=== PATIENT | female | born 1975 | race Caucasian/White ===

== ENCOUNTER 2018-02-07 17:35 | Outpatient (REF) | payer MEDICAID, SELFPAY ==
--- NOTE | 2018-02-07 15:20 | PAPFT_PTH ---
PATIENT: Saige Merchant LOC: [facility] U#:[id number] AGE/SX: 42/F ROOM: RE02/07/[address]: Tamara De La Torre NP : 1975 BED: DIS: 02/07/2018 SPEC #: [id number] RECD: 02/07/18 18:01 STATUS: KAY REBharath #: [id number] CELESTINE: 02/07/18 15:[address]: Tamara De La Torre NP DEPT: [facility] Cytology RECD BY: Sabine Donovan ENTERED: 02/07/18 18:01 SP TYPE: PAPFT OTHR DR: Joseph Hunt MD Tissues: 1 - CX/ENDOCX FOR PAP SMEARS Procedures: PAP THIN PREP/UVM Screening HPV DNA PROBE Comments: [id number]
== END 2018-02-07 17:55 ==
LOC: LBN 17:35
PROVIDERS: PCP Family Medicine; Visit Provider Nurse Practitioner Women's Health
DX: Z12.4 Encounter for screening for malignant neoplasm of cervix (principal); Z11.51 Encounter for screening for human papillomavirus (HPV)
CPT/HCPCS: 88142; 87624

== ENCOUNTER 2018-02-28 00:25 | Outpatient (CLI) | payer MEDICAID, SELFPAY ==
--- NOTE | 2018-02-28 15:24 | DI.MAMMO_ITS ---
SYMPTOM/DIAGNOSIS: BASELINE, SCREENING MAMMOGRAMS: Mammograms were interpreted according to the usual protocol including computer analysis with CAD system, tomosynthesis and C view imaging. This is a baseline examination. Breast density C. No masses or microcalcifications are seen. There is nothing to suggest malignancy. IMPRESSION: Negative mammogram. Routine screening is recommended. Category I. MQSA ASSESSMENT OF FINDINGS: Negative. Category 1. Patient will receive a letter notifying them of these results. Bi-RADS category C. The breasts are heterogeneously dense, which may obscure small masses.
== END 2018-02-28 00:45 ==
PROVIDERS: PCP Family Medicine; Visit Provider Nurse Practitioner Women's Health
DX: Z12.31 Encounter for screening mammogram for malignant neoplasm of breast (principal)
CPT/HCPCS: 77063; 77067

== ENCOUNTER 2018-05-08 17:20 | Outpatient (REF) | payer MEDICAID, SELFPAY ==
[2018-05-12 13:36] LABS: Chlamydia Result Negative; GC Result Negative; Specimen Description CERVIX
== END 2018-05-08 17:40 ==
LOC: LBN 17:20
PROVIDERS: PCP Family Medicine; Visit Provider Nurse Practitioner Family
DX: Z11.3 Encounter for screening for infections with a predominantly sexual mode of transmission (principal)
CPT/HCPCS: 87491; 87591

== ENCOUNTER 2021-08-24 16:05 | Outpatient (REF) | payer OTHER, SELFPAY ==
--- NOTE | 2021-08-24 15:45 | PAPFT_PTH ---
PATIENT: Saige Merchant LOC: [facility] U#:[id number] AGE/SX: 45/F ROOM: RE08/24/[address]: BLAIRE Pham : 1975 BED: DIS: 08/24/2021 SPEC #: [id number] RECD: 08/24/21 17:41 STATUS: KAY REBharath #: [id number] CELESTINE: 08/24/21 15:[address]: Buffy De Paz DEPT: [facility] Cytology RECD BY: Sabine Donovan ENTERED: 08/24/21 17:42 SP TYPE: PAPFT OTHR DR: Alla Valencia, PhD [employer]HER Tissues: 1 - CX/ENDOCX FOR PAP SMEARS Procedures: PAP THIN PREP/UVM Screening HPV DNA PROBE Comments: [id number]
== END 2021-08-24 16:06 | disposition home or self-care (01) ==
LOC: LBN 16:05
PROVIDERS: PCP Nurse Practitioner; Visit Provider Nurse Practitioner Family
DX: Z12.4 Encounter for screening for malignant neoplasm of cervix (principal); Z11.51 Encounter for screening for human papillomavirus (HPV)
CPT/HCPCS: 88142; 87624

== ENCOUNTER 2021-09-14 01:59 | Outpatient (CLI) | payer OTHER, SELFPAY ==
--- NOTE | 2021-09-14 07:53 | DI.MAMMO_ITS ---
Exam(s) MAMMO SCREENING EXAM: MAMMO SCREENING CLINICAL HISTORY: screening,z12.39 TECHNIQUE: Bilateral full field digital CC and MLO mammographic images were obtained with 3D tomosyn thesis and utilizing computer aided detection (CAD). COMPARISON: Available for comparison. FINDINGS: Masses/Architectural Distortion: There is a spiculated area in the outer central right breast seen on both the craniocaudad and mediolateral oblique views. Microcalcifications: No suspicious pleomorphic-type are seen. Skin Thickening/Nipple Retraction: None. IMPRESSION: 1. Area of spiculation in the outer right breast. This area should be further evaluated with spot co mpression views in both the CC and MLO views. 2. Right breast ultrasound should also be obtained at that time. BI-RADS Category 0 - Assessment Incomplete: Need additional imaging evaluation Breast Density - Category C - Heterogeneously dense Breast density category C or D implies that the patient has dense breast tissue. Dense breast tissue is very common and is not abnormal but dense breast tissue can make it harder to find cancer on a ma mmogram. Also, dense breast tissue may increase their breast cancer risk. This information about the result of the mammogram report was provided to the patient to raise their awareness. Use this report when you speak with the patient about their risks for breast cancer, which includes their family hist ory. At that time, you may recommend for more screening tests (Ultrasound or MRI) as they might be us eful based on their risk. A negative radiographic report should not delay biopsy if a dominant or clinically suspicious mass is present. Up to ten percent of cancers are not identified on mammography. A negative report may reinforce clinical impression. Adenosis and dense breasts may obscure an underlying neoplasm. False positive reports average 6 to 10%. Patient will receive a letter notifying them of these results.
== END 2021-09-14 02:19 ==
PROVIDERS: PCP Nurse Practitioner; Visit Provider Nurse Practitioner
DX: Z12.31 Encounter for screening mammogram for malignant neoplasm of breast (principal); R92.8 Other abnormal and inconclusive findings on diagnostic imaging of breast
CPT/HCPCS: 77063; 77067

== ENCOUNTER → 2021-09-26 01:19 | Outpatient (CLI) | payer OTHER, SELFPAY ==
--- NOTE | 2021-09-26 10:00 | DI.MAMMO_ITS ---
Exam(s) MG MAMMO SCREEN CALL BACK UNI US BREAST RT COMPLETE EXAM: MG MAMMO SCREEN CALL BACK UNI-RIGHT AND COMPLETE RIGHT BREAST ULTRASOUND CLINICAL HISTORY: F/U ABNL MAMMO, AREA OF SPICULATION IN OUTER RT BREAST. TECHNIQUE: Unilateral spot mammographic images obtained with 3D tomosynthesisand utilizing computer aided detection (CAD). . Complete RIGHT breast Ultrasound was also performed, including all 4 quadrants, the retroareolar vianney on, and the ipsilateral axilla. COMPARISON: Prior mammograms were reviewed. This additional imaging was performed due to findings described on the recent screening mammogram of 09/14/2021. FINDINGS: DIAGNOSTIC RIGHT BREAST MAMMOGRAM: Additional mammographic views performed todayreveal concerning findings at the area previously descri bed consisting of significant architectural distortion suspicious for malignancy. COMPLETE RIGHT BREAST ULTRASOUND: Ultrasound performed today reveals a few scattered microcysts.. However, the main finding is at 8 o' clock position where there is an ominous 1.4 x 1.2 cm hypoechoic area with decreased through transmis evonne which is suspicious for malignancy and corresponds to the finding on the mammogram. Ultrasound of the right axilla did not reveal significant adenopathy. IMPRESSION: Mammographic and ultrasound findings are highly suspicious for malignancy at the 8 o'clock position o f the right breast. Biopsy is recommended. Findings and recommendation for biopsy was discussed by myself with the patient today.. Findings and recommendations also called by myself to Dr. Valencia. BI-RADS Category 5 - Highly Suggestive of Malignancy: Biopsy recommended Breast Density - Category C - Heterogeneously dense Breast density Category C or D implies that the patient has dense breast tissue. Dense breast tissue can make it harder to find cancer on a mammogram. Dense breast tissue is also associated with an incr eased risk of breast cancer. This information about the result of the mammogram report was provided to the patient to raise their awareness. Use this report when you speak with the patient about their risks for breast cancer, which includes their family history. At that time, you may recommend additional screening tests (Ultrasoun d or MRI) as these tests may add significant information. A negative radiographic report should not delay biopsy if a dominant or clinically suspicious mass is present. Up to ten percent of cancers are not identified on mammography. A negative report may reinforce clinical impression. Adenosis and dense breasts may obscure an underlying neoplasm. False positive reports average 6 to 10%. Patient will receive a letter notifying them of these results.
== END ==
PROVIDERS: PCP Nurse Practitioner; Visit Provider Nurse Practitioner
DX: Z12.31 Encounter for screening mammogram for malignant neoplasm of breast (principal); R92.8 Other abnormal and inconclusive findings on diagnostic imaging of breast; N63.13 Unspecified lump in the right breast, lower outer quadrant
CPT/HCPCS: 76642; 77063; 77067

== ENCOUNTER 2022-09-21 11:11 | Day surgery (SDC) | payer OTHER, SELFPAY ==
--- NOTE | 2022-09-20 22:19 | PDOC.DSDIS_ITS ---
Date of service: 09/21/22 Time of Service: 13:57 Discharge Plan Disposition Patient Disposition: Home Condition: Good Discharge Details Reason For Visit: colon cancer screening Attending Provider: Claudia Bansal Primary Care Provider: Colette Copeland Home Meds and New Rx's Prescriptions: No Action Mirena 20 mcg/24 hr (5 years) intrauterine device 1 insert IY ONCE tamoxifen 20 mg tablet 20 mg PO HS Patient Comments: TAKE 1 TABLET BY MOUTH DAILY. START ON 02/26/22 citalopram [Celexa] 40 mg tablet 40 mg PO HS atenolol 25 mg tablet 25 mg PO HS Discharge Instructions Additional Instructions: DSU Colonoscopy Post- Op Instructions Instructions for Everyone who is given Anesthesia: For your safety, please do the following for the next twenty-four (24) hours: *Do Not operate a motor vehicle (car, truck, motorcycle, etc.) *Do Not drink alcoholic beverages or use any recreational drugs for the first 24 hours or while taking pain medications. The medications in your body may have a reaction that can be dangerous. *Do Not make any important decisions or sign any important papers. Findings: normal colon Follow up: Repeat in 10 yrs time. Of course, you should continue to have a yearly physical exam including a rectal exam. If you should ever notice any pain or difficulty having a bowel movement, blood in the stool, unexplained weight loss, or change in your bowel habits, please contact your health provider 1. No lifting over 20 pounds or strenuous activity for the first 24 hours after your procedure. After 24 hours there are no restrictions on your activity but you may feel fatigued for a few days. 2. After you arrive home you may have a light meal and return to your normal diet as you can tolerate it without feeling sick to your stomach. 3. You may have a bloated, gaseous feeling in your belly (abdomen) after a colonoscopy. Passing gas and belching will help. Walking or lying down on your left side with your knees flexed may relieve the discomfort. Call the office at [phone] (Office) or [phone] (Hospital) right away if you notice any of the following: a.Vomiting of blood or ?coffee ground stools?. b.Rectal bleeding 1Tbsp, blood clots or continuous bleeding. c.Severe belly (abdominal) pain. d.A hard distended belly (abdomen) and an inability to pass gas. 4. Please don?t expect to have a normal BM (bowel movement) for 2-3 days after your procedure. 5. If there are questions regarding the findings of your procedure, please contact your doctor 6. If you are unable to contact your doctor with a problem, contact the hospital at [phone]. 7. Continue all your regular medications unless directed otherwise. I understand the above instructions and have no questions. Signature of Patient or Adult Escort Name of Responsible Adult Escort Signature of Nurse Date/Time Activity:: see above Diet:: see above Discharge Orders Discharge Orders: Discharge Order (Routine); Ordered 09/20/22 Ordered By: Claudia Bansal DS: Diagnosis Discharge Diagnosis (1) Screening for malignant neoplasm of colon performed: Status: Acute Asessment and Plan: The patient is seen and examined after their colonoscopy.? The patient has been able to pass gas.? They are not having abdominal pain.? They have been able to tolerate liquids and a snack.? They do not have any nausea or vomiting.? They are not having any chest pain or shortness of breath.??? They are not having any rectal bleeding. Their vital signs have been stable-see nursing notes. We discussed findings during their colonoscopy, and any biopsies that were done/polyps that were removed. The patient will be sent a letter with any biopsy results, and when to repeat the colonoscopy.-see discharge instructions. Patient was given explicit instructions to follow-up regarding colonoscopy-refer to discharge instructions.? We reviewed resumption of medications. Patient verbalized understanding and discharged in stable and satisfactory condition- See nursing notes.
[2022-09-21 11:26] VITALS: BP 108/79; PULSE 74; RESP 17; TEMP 36.6; O2SAT 98
[2022-09-21] MEDS: Lactated Ringers 1,000 ML 80 ML IV (11:42)
--- NOTE | 2022-09-21 13:12 | W.ANESPRE ---
General Info Date of Service Date Performed: 09/21/22 Height: 5 ft 6 in Weight: 74.5 kg Body Mass Index (BMI): 26.5 Surgical Procedure: Operation Date: 09/21/22 11:50 Proposed Procedure Side Surgeon p Colonoscopy Claudia Bansal, Actual Procedure Side Surgeon p Colonoscopy Not Applicable Claudia Bansal, Pre-Op Diagnosis Post-Op Diagnosis COLONOSCOPY SCREENING Meds Allergies and Home Medications Allergies Allergy/AdvReac Type Severity Reaction Status Date / Time No Known Allergies Allergy Verified 09/21/22 11:33 Home Medication Medication Instructions Recorded levonorgestrel 21 mcg/24 hours (8 1 insert intrauterine ONCE 05/08/18 yrs) 52 mg intrauterine device (Mirena) tamoxifen 20 mg tablet 20 mg PO HS 06/28/22 atenolol 25 mg tablet 25 mg PO HS 09/20/22 citalopram 40 mg tablet (Celexa) 40 mg PO HS 09/20/22 Current Visit Medications: Current Medications Generic Name Dose Route Start Last Admin Trade Name Freq PRN Reason Stop Dose Admin Hyoscyamine Sulfate 0.125 mg 09/21/22 10:12 Hyoscyamine 0.125 Mg Sl/Oral/Chew SL 10/21/22 10:11 DIRECTED PRN Ringer's Solution 1,000 mls @ 80 mls/hr 09/21/22 06:00 09/21/22 11:42 IV 09/21/22 23:59 80 mls/hr INFUSION DEJAH Administration IV Miscellaneous Supplies 1 each 09/21/22 06:00 Iv Access IV 09/21/22 23:59 DIRECTED DEJAH Ondansetron HCl 4 mg 09/21/22 10:12 Ondansetron 4 Mg/2 Ml Vial IVP 10/21/22 10:11 Q4H PRN PRN Nausea / Vomiting Sodium Chloride 0 ml 09/21/22 06:00 Normal Saline Flush 10 Ml Syr IV 09/21/22 23:59 PRN PRN Sodium Chloride 0 ml 09/21/22 06:00 Normal Saline 10 Ml Vial IJ 09/21/22 23:59 DIRECTED PRN Sterile Water 0 ml 09/21/22 06:00 Water,Injection,Sterile 10 Ml Vial IJ 09/21/22 23:59 DIRECTED PRN PFSH Active Problems Active Problems: Problem Status Onset Code Contraceptive management Depression Tobacco use Alcohol abuse 05/15/12 F10.10 Supraventricular tachycardia I47.1 IUD surveillance Z30.431 Invasive lobular carcinoma of breast in female C50.919 Colon cancer screening Z12.11 Medical History Medical History Abnormal mammogram of right breast 09/17: us & repeat also abn; ref [facility] [place] Abnormal Pap smear of cervix LGSIL. 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 06/2016 ASCUS + HPV. GERD (gastroesophageal reflux disease) UTI (urinary tract infection), uncomplicated EColi - pt given Rx 03/2014. Had not filled Rx 05/07/14 secondary to insurance issues. Pt counseled to do so. Surgical History Surgical History Endometrial Biopsy (07/14/14) [facility] Hx of lumpectomy Tobacco Smoking/Tobacco Use Status: Current every day Tobacco Type: cigarettes Passive smoking exposure: Yes Second hand exposure: Yes Alcohol Alcohol Intake: current Alcohol intake frequency: a few times a week Alcohol type: hard liquor Substance Use Substance use: Never Substance use type: does not use Prental History History 0 Para Hx # Term Pregnancies Multiple births Hx # Pregnancies Ectopic pregnancies AB induced Hx Number of Living Children AB spontaneous Vital Signs and Lab Results Vital Signs Most Recent Vital Signs in EMR: Most Recent Vital Signs Temp Pulse Resp BP Pulse Ox 36.6 C 74 17 108/79 98 09/21/22 11:26 09/21/22 11:26 09/21/22 11:26 09/21/22 11:26 09/21/22 11:26 Point of Care Results Point of Care Results: POC- Test(urine) Negative 09/21/22 12:00 Lab Results Blood Type / Crossmatch: No Data to Display Complete Blood Count: No Data to Display Complete Metabolic Panel: No Data to Display Liver Function Panel: No Data to Display Coagulation Panel: No Data to Display Cardiac Panel: No Data to Display Arterial Blood Gas: No Data to Display Venous Blood Gas: No Data to Display Pancreas Panel: No Data to Display Thyroid Panel: No Data to Display Infectious Disease: No Data to Display Blood Cultures: No Data to Display Toxicology Panel: No Data to Display Panel: No Data to Display Anesthesia Assessment and Plan Anesthesia History Personal History: No History of Anesthesia Complications Family History: No Family History of Anesthesia Complications Exercise Tolerance Exercise Tolerance: Metabolic Equivalents<4 Pertinent Negatives Pertinent Negatives: No Symptoms of GERD Cardiac & Pulmonary Exam Cardiac Exam: Normal S1/S2 Heart Sounds Pulmonary Exam: Clear Bilateral Breath Sounds Implantable Cardiac Device Does patient have a Pacemaker or an ICD?: No Airway Exam Known Difficult Airway: No Mallampati Class: 2 Mouth Opening: Normal (> 3cm) Thyromental Distance: Greater than 3 cm Neck Range of Motion: Full ROM Neck Circumference: Normal Teeth Condition: Normal Dentition ASA Classification ASA Score: ASA 2 Emergency Case?: No NPO Status NPO Status: NPO Clears >2 hours, Solids >8 hours Status Status: Not Relevant due to Medical History Anesthesia Plan Resuscitation Status: Full Code Anesthesia Technique: General Anesthesia Airway Planned: Natural Airway Monitors Used: Standard Monitors
[2022-09-21 13:13] VITALS: BMI 26.5
[2022-09-21 13:50] VITALS: BP 96/61; PULSE 71; RESP 16; TEMP 36.3; O2SAT 99
--- NOTE | 2022-09-21 13:54 | W.COLOREPORT ---
Date of service: 09/21/22 Time of Service: 13:55 Colonoscopy Report Date of procedure: 09/21/22 Pre-op diagnosis general: CRC screen Post-op diagnosis procedure note: same Surgeon: Claudia Bansal Anesthesia Type: General:No Airway Estimated blood loss (mL): 0 Pathology: none sent Complications: None Disposition: same day Prep: Miralax/Dulcolax Retraction Time: 10 Procedure Description: After informed consent was obtained the patient was taken to the procedure room and placed in a left decubitous position. Monitors were applied and a time out was done. The patients name, date of , procedure, allergies to medications and metal in their body was reviewed. The patient was then sedated. Once sedated and comfortable a rectal exam was done. External exam was normal. Internal exam revealed a normal sphincter tone and no palpable massess. The scope was then introduced and retrofelexed. No internal hemorrhoids were identified. She does have a few internal hemorrhoidal tags. She has without the scope was then advanced to the cecum w/out difficulty. The TI and appendiceal orifice were identified. The prep was BBPS 3 in all segments for total of 9 . The scope was then slowly retracted over 10 to minutes back into the rectum. there are no polyps, AVMs, or diverticula visualized today. The mucosa is pink and healthy with a normal vascular pattern. The scope was removed and the patient was woken up and taken back to Same day surgery in stable condition. The patient tolerated the procedure well and there were no immediate complications. Follow up: The patient should follow up in 10 years unless they develop changes in bowel habits or other new gastrointestinal complaints.
--- NOTE | 2022-09-21 13:57 | W.ANESPOSTOP ---
Postoperative Evaluation Date, Time and Location Date Performed: 09/21/22 Time Performed: 13:57 Patient Location: Day Surgery Unit Vital Signs Most Recent Imported Vital Signs: Most Recent Vital Signs Temp Pulse Resp BP Pulse Ox 36.3 C L 71 16 96/61 L 99 09/21/22 13:50 09/21/22 13:50 09/21/22 13:50 09/21/22 13:50 09/21/22 13:50 Pain Score Most Recent Pain Score: Most Recent Pain Score Pain Level 0 09/21/22 13:50 Assessment Mental Status: Awake (Alert & Oriented to Patient Baseline) Airway and Respiratory Function: Patent airway with normal (patient baseline) respiratory exam Cardiovascular Function: Hemodynamically Stable Hydration Status: Adequately Hydrated Nausea & Vomiting: No Nausea or Vomiting Pain: Pt. Denies Any Pain Peripheral Nerve Block: Patient did not receive a nerve block
[2022-09-21 14:19] VITALS: BP 113/86; PULSE 63; RESP 18; TEMP 36.5; O2SAT 100
== END 2022-09-21 15:10 | disposition home or self-care (01) ==
PROVIDERS: PCP Nurse Practitioner Family; Visit Provider Surgery
PROC: 0DJD8ZZ Inspection of Lower Intestinal Tract, Via Natural or Artificial Opening Endoscopic (ICD-10-PCS; CPT 45378; principal; 2022-09-21 11:45)
DX: Z12.11 Encounter for screening for malignant neoplasm of colon (principal)
CPT/HCPCS: 45378; 81025; J2001; J2405

== ENCOUNTER 2023-07-10 03:51 | Outpatient (CLI) | payer OTHER, SELFPAY ==
[2023-07-10 07:56] LABS: HCT 41.4 % (36.0-46.0); HGB 13.9 g/dL (11.2-15.7); MCH 32.1 pg (27.0-33.0); MCHC 33.6 % (32.0-36.0); MCV 96 fL (80-95); MPV 11.1 fL (8.0-11.0); Platelet Count 158 10^3/uL (130-400); RBC 4.33 10^6/uL (3.93-5.22); RDW 11.9 % (11.7-14.6); RDW-SD 41.6 fL; WBC 7.66 10^3/uL (4.4-10.8)
[2023-07-10 08:20] LABS: Anion Gap 8.5 mmol/L (3-11); BUN 15 mg/dL (7-18); CO2 28.5 mmol/L (21.0-32.0); CREATININE 0.9 mg/dL (0.55-1.02); Calcium 9.1 mg/dL (8.5-10.1); Calculated LDL 130 mg/dL (<100); Chloride 107 mmol/L (98-107); Cholesterol 202 mg/dL (<200); Estimated GFR 78.37 (mL/min/1.73m2); Glucose 96 mg/dL (74-106); HDL Cholesterol 61 mg/dL (40-60); Sodium 144 mmol/L (136-145); TSH (W/Ref FT4) 1.57 uIU/mL (0.36-3.74); Triglyceride 59 mg/dL (<150)
== END 2023-07-10 03:52 | disposition home or self-care (01) ==
LOC: LBO 03:51
PROVIDERS: PCP Nurse Practitioner Family; Visit Provider Nurse Practitioner Family
DX: Z00.00 Encounter for general adult medical examination without abnormal findings (principal); F10.10 Alcohol abuse, uncomplicated
CPT/HCPCS: 36415; 80048; 80061; 85027; 84443

== ENCOUNTER 2024-04-16 01:15 | Outpatient (CLI) | payer OTHER, SELFPAY ==
--- NOTE | 2024-04-16 | DI.DEXA_ITS ---
Exam(s) XR DEXA BONE DENSITY W/WO ROBYN EXAM: XR DEXA BONE DENSITY W/WO ROBYN CLINICAL HISTORY: RT BREAST CANCER C50.511 Z17.0 MONITORING TAMOXIFEN THERAPY Z51.81 Z79.810 TECHNIQUE: COMPARISON: No exams were available for comparison FINDINGS: Lateral Spine Image: Unremarkable. No compression deformities identified. Left hip: Total T-Score: -0.6 Total Z-Score: -0.1 T- and Z-scores: Based on the total T and Z scores, the findings are within normal limits. Lumbar Spine: Total T-Score: 0.0 Total Z-Score: 0.8 T- and Z-scores: Within normal limits. IMPRESSION: No evidence of osteoporosis.
== END 2024-04-16 01:35 ==
LOC: DI 01:15
PROVIDERS: PCP Nurse Practitioner Family; Visit Provider Nurse Practitioner Family
DX: C50.511 Malignant neoplasm of lower-outer quadrant of right female breast (principal); Z17.0 Estrogen receptor positive status [ER+]
CPT/HCPCS: 77080

== ENCOUNTER 2024-08-20 10:54 | Outpatient (REF) | payer OTHER, SELFPAY ==
--- NOTE | 2024-08-20 10:40 | PAPFT_PTH ---
PATIENT: Saige Merchant LOC: [facility] U#:[id number] AGE/SX: 48/F ROOM: RE08/20/[address]: Heide Lyons : 1975 BED: DIS: 08/20/2024 SPEC #: [id number] RECD: 08/20/24 12:50 STATUS: KAY REQ #: [id number] CELESTINE: 08/20/24 10:[address]: Heide Lyons DEPT: [facility] Cytology RECD BY: Sabine Donovan ENTERED: 08/20/24 12:50 SP TYPE: PAPFT OTHR DR: Colette Copeland, GRAIN DISTRIBUTOR Tissues: 1 - CX/ENDOCX FOR PAP SMEARS Procedures: PAP THIN PREP/UVM Screening HPV DNA PROBE Comments: [id number] (HPV 16 & 18/45)
== END 2024-08-20 10:55 | disposition home or self-care (01) ==
LOC: LBN 10:54
PROVIDERS: PCP Nurse Practitioner Family; Visit Provider Advanced Practice Midwife
DX: N94.9 Unspecified condition associated with female genital organs and menstrual cycle (principal); Z12.4 Encounter for screening for malignant neoplasm of cervix; B37.9 Candidiasis, unspecified
CPT/HCPCS: 88142; 87480; 87510; 87624; 87660

== ENCOUNTER 2025-03-30 01:01 | Outpatient (CLI) | payer OTHER, SELFPAY ==
[2025-03-30 07:53] LABS: Hemoglobin A1C 5.1 % (<5.7)
[2025-03-30 08:48] LABS: Anion Gap 5.3 mmol/L (3-11); BUN 19 mg/dL (9-23); CO2 29.7 mmol/L (20.0-31.0); Calcium 8.9 mg/dL (8.3-10.6); Chloride 109 mmol/L (98-107); Cholesterol 186 mg/dL (<200); Glucose 97 mg/dL (74-106); HDL Cholesterol 68 mg/dL (>40); Potassium 4.4 mmol/L (3.5-5.1); Sodium 144 mmol/L (136-145)
== END 2025-03-30 01:02 | disposition home or self-care (01) ==
PROVIDERS: PCP Nurse Practitioner Family; Visit Provider Nurse Practitioner Family
DX: Z00.00 Encounter for general adult medical examination without abnormal findings (principal); F33.41 Major depressive disorder, recurrent, in partial remission; F10.10 Alcohol abuse, uncomplicated; R73.01 Impaired fasting glucose
CPT/HCPCS: 36415; 80048; 80061; 83036